=== PATIENT | male | born 1960 | race Caucasian/White ===

== ENCOUNTER 2019-11-06 14:31 | Emergency (ER) | payer BC ==
--- NOTE | 2019-11-06 14:50 | UC ---
Skin Complaint HPI - HPI Summary HPI Summary: 59 yo male presents with abdominal wound. He tells me that in the beginning of 2018 he was in an opioid rehab program in [place] weaning off oxycodone. They used SQ injections of "something" into the skin of the lower abdomen. He stopped these around May and successfully completed the rehab program. He reports that since may he has had a small ~1.0cm area of redness at the right lower soft tissue abdomen. Over the last 3 days this area has gotten more red, swollen, and painful. Last night was able to squeeze clear/brownish fluid from the site. Mildly warm. Denies fever, chills, diabetes, or hx of MRSA. - History of Current Complaint Time Seen by Provider: 11/06/19 14:49 Stated Complaint: WOUND IS RED Hx Obtained From: Patient Onset/Duration: Gradual Onset Onset Severity: Mild Current Severity: Moderate Pain Intensity: 5 Pain Scale Used: 0-10 Numeric - Allergy/Home Medications Allergies/Adverse Reactions: Allergies Allergy/AdvReac Type Severity Reaction Status Date / Time No Known Allergies Allergy Verified 11/06/19 14:56 Home Medications: Home Medications Gabapentin 600 mg PO TID 11/06/19 [History Confirmed 11/06/19] Losartan Potassium 100 mg PO DAILY 11/06/19 [History Confirmed 11/06/19] Zolpidem TAB* [Ambien*] 10 mg PO 11/06/19 [History] busPIRone TAB* [Buspar TAB*] 5 mg PO DAILY PRN 11/06/19 [History Confirmed 11/06] PMH/Surg Hx/FS Hx/Imm Hx Cardiovascular History: Hypertension Psychological History: Anxiety, Depression - Surgical History Surgical History: Yes Surgery Procedure, Year, and Place: Left foot 2018 - Family History Known Family History: Positive: Hypertension - Social History Lives: With Family Alcohol Use: Occasionally Substance Use Type: None Smoking Status (MU): Light Every Day Tobacco Smoker Type: Cigarettes Review of Systems All Other Systems Reviewed And Are Negative: No Constitutional: Positive: Negative Skin: Positive: Other - Wound abdomen Respiratory: Positive: Negative Cardiovascular: Positive: Negative Gastrointestinal: Positive: Negative Neurovascular: Positive: Negative Musculoskeletal: Positive: Negative Neurological: Positive: Negative Psychological: Positive: Negative Physical Exam - Summary Physical Exam Summary: GENERAL: NAD. WDWN. No pain distress. SKIN: RIGHT LOWER ABDOMEN: Large approx 20.0cm oval shaped area of mild erythema and warmth with 2.0cm central area of induration and black appearing scab with scant clear/brown thin discharge. Mildly warm and ttp. No streaking. NECK: Supple. Nontender. No lymphadenopathy. CHEST: CTAB. No r/r/w. No accessory muscle use. Breathing comfortably and in no distress. CV: RRR. Pulses intact. Cap refill <2seconds ABDOMEN: Soft. NTTP. No distention or guarding. No organomegaly. No CVA tenderness. Bowel sounds present NEURO: Alert. PSYCH: Age appropriate behavior. Triage Information Reviewed: Yes Vital Signs: Vital Signs: Temp Pulse Resp BP Pulse Ox 98.4 F 73 16 151/67 99 11/06/19 14:47 11/06/19 14:47 11/06/19 14:47 11/06/19 14:47 11/06/19 14:47 Vital Signs Reviewed: Yes Course/Dx - Course Course Of Treatment: Suspect cellulitis with possible underlying early abscess. In the clinic the borders were marked with a purple marking pen and he was given 1gm of ceftriaxone. Culture swab obtained. Rx for clindamycin. He is going back to [place] tomorrow. Recommended recheck with PCP or UC down there in 2 days. Go to ED if develops fevers, n/v, increased redness, or increased pain - Diagnoses Provider Diagnosis: Cellulitis of right abdominal wall Discharge ED - Sign-Out/Discharge Documenting (check all that apply): Patient Departure All imaging exams completed and their final reports reviewed: No Studies - Discharge Plan Condition: Stable Disposition: HOME Prescriptions: Clindamycin Oral SOLUTION* [Clindamycin 75 MG/5 ML SOLUTION*] 300 mg PO TID # 420 ml Patient Education Materials: Cellulitis (ED) Referrals: No Primary Care Phys,NOPCP [Primary Care Provider] - Additional Instructions: If you develop a fever, shortness of breath, chest pain, new or worsening symptoms - please call your PCP or go to the ED immediately. Your blood pressure was high at todays visit. Please see your primary provider within 4 weeks for recheck and re-evaluation. Take the antibiotic as prescribed. The area was marked with a purple marker today - if the redness continues to spread after 2 days or if you develop a fever, please go to the ER immediately for further treatment. - Billing Disposition and Condition Condition: STABLE Disposition: Home
[2019-11-06] MEDS ORDERED: Lidocaine 1% MPF ** 5 ML VIAL IM ONE ×2 (15:04→16:00)
[2019-11-06] MEDS ORDERED: cefTRIAXone VIAL(*) 250 MG VIAL IM ONE (15:04)
[2019-11-06] MEDS ORDERED: cefTRIAXone VIAL(*) 1,000 MG VIAL IM ONE (16:00)
--- NOTE | 2019-11-06 21:28 | UC ---
- Progress Note Progress Note: Lab call with +MRSA on wound culture. Pt on clindamycin. No change. Course/Dx - Diagnoses Provider Diagnoses: Cellulitis of right abdominal wall Discharge ED - Sign-Out/Discharge Documenting (check all that apply): Post-Discharge Follow Up All imaging exams completed and their final reports reviewed: No Studies - Discharge Plan Condition: Stable Disposition: HOME Prescriptions: Clindamycin Oral SOLUTION* [Clindamycin 75 MG/5 ML SOLUTION*] 300 mg PO TID # 420 ml Patient Education Materials: Cellulitis (ED) Referrals: No Primary Care Phys,NOPCP [Primary Care Provider] - Additional Instructions: If you develop a fever, shortness of breath, chest pain, new or worsening symptoms - please call your PCP or go to the ED immediately. Your blood pressure was high at todays visit. Please see your primary provider within 4 weeks for recheck and re-evaluation. Take the antibiotic as prescribed. The area was marked with a purple marker today - if the redness continues to spread after 2 days or if you develop a fever, please go to the ER immediately for further treatment. - Billing Disposition and Condition Condition: STABLE Disposition: Home
--- NOTE | 2019-11-09 07:29 | UC ---
- Progress Note Progress Note: Wound culture and sensitivity from November 06, 2019 comes back staph aureus positive MRSA positive and Klebsiella positive. Patient was placed on clindamycin. The MRSA is sensitive to clindamycin. There is no sensitivity listed of clindamycin for the Klebsiella. Patient is from out of town and from the note it appears that he would be traveling back home potentially today November 08, 2019. Nursing to call patient and find out how they're doing. If the patient is improving the plan would be to continue the treatment and have him follow-up his primary care doctor. If the patient is not improving or worse I will either call and an additional prescription for Keflex which the Klebsiella is susceptible to or the patient will need reevaluation in the emergency department based on their medical condition. Course/Dx - Diagnoses Provider Diagnoses: Cellulitis of right abdominal wall Discharge ED - Sign-Out/Discharge Documenting (check all that apply): Patient Departure All imaging exams completed and their final reports reviewed: No Studies - Discharge Plan Condition: Stable Disposition: HOME Prescriptions: Clindamycin Oral SOLUTION* [Clindamycin 75 MG/5 ML SOLUTION*] 300 mg PO TID # 420 ml Patient Education Materials: Cellulitis (ED) Referrals: No Primary Care Phys,NOPCP [Primary Care Provider] - Additional Instructions: If you develop a fever, shortness of breath, chest pain, new or worsening symptoms - please call your PCP or go to the ED immediately. Your blood pressure was high at todays visit. Please see your primary provider within 4 weeks for recheck and re-evaluation. Take the antibiotic as prescribed. The area was marked with a purple marker today - if the redness continues to spread after 2 days or if you develop a fever, please go to the ER immediately for further treatment. - Billing Disposition and Condition Condition: STABLE Disposition: Home
== END 2019-11-06 15:46 | disposition home or self-care (01) ==
LOC: UCEAST 14:31
DX: L03.311 Cellulitis of abdominal wall (principal); I10 Essential (primary) hypertension; F41.9 Anxiety disorder, unspecified; F17.210 Nicotine dependence, cigarettes, uncomplicated; Z79.899 Other long term (current) drug therapy
CPT/HCPCS: 87070; 87077; 87186; 87205; 87640; 87641; 96372; 99201; G0463; J0696